=== PATIENT | male | born 1980 | race Caucasian/White ===

== ENCOUNTER 2020-12-29 09:28 | Emergency (ER) | payer OTHER, SELFPAY ==
[2020-12-29] MEDS ORDERED: Boostrix 0.5 ML (Tdap) VIAL ONE (09:50)
[2020-12-29] MEDS ORDERED: Lidocaine 1% (PF) 30 ML VIAL ONE ×2 (09:51→10:13)
[2020-12-29] MEDS ORDERED: traMADol HCl 50 MG TAB ONE (10:33)
[2020-12-29] MEDS ORDERED: Bacitracin 1 PK ONE (10:33)
== END 2020-12-29 11:24 | disposition home or self-care (01) ==
LOC: NAV ERS 09:28
DX: S11.81XA Laceration without foreign body of other specified part of neck, initial encounter (principal); S40.011A Contusion of right shoulder, initial encounter; S46.391A Other injury of muscle, fascia and tendon of triceps, right arm, initial encounter; E78.5 Hyperlipidemia, unspecified; E78.00 Pure hypercholesterolemia, unspecified; Z23 Encounter for immunization; W22.8XXA Striking against or struck by other objects, initial encounter; Y92.89 Other specified places as the place of occurrence of the external cause; Y99.0 Civilian activity done for income or pay
CPT/HCPCS: 12042; 90471; 90715; J2001

== ENCOUNTER 2021-01-05 11:29 | Emergency (ER) | payer SELFPAY | END 2021-01-05 12:15 | disposition home or self-care (01) | LOC: NAV ERS 11:29 | DX: S01.81XD Laceration without foreign body of other part of head, subsequent encounter (principal); E78.5 Hyperlipidemia, unspecified; E78.00 Pure hypercholesterolemia, unspecified | CPT/HCPCS: 99281 ==

== ENCOUNTER 2021-04-22 12:26 | Emergency (ER) | payer OTHER, SELFPAY ==
[2021-04-22] MEDS ORDERED: Bacitracin 1 PK ONE (12:55)
[2021-04-22] MEDS ORDERED: Boostrix 0.5 ML (Tdap) VIAL ONE (13:01)
== END 2021-04-22 13:05 | disposition home or self-care (01) ==
LOC: NAV ERS 12:26
DX: S00.83XA Contusion of other part of head, initial encounter (principal); E78.00 Pure hypercholesterolemia, unspecified; E78.5 Hyperlipidemia, unspecified; Z23 Encounter for immunization; W19.XXXA Unspecified fall, initial encounter
CPT/HCPCS: 90471; 90715; 99001